=== PATIENT | female | born 1985 ===

== ENCOUNTER 2019-08-05 08:19 | Day surgery (SDC) | payer OTHER ==
[~2019-08-05 08:19] MED LIST: BUSPIRONE HCL30 MG PO; LITHOBID300 M1 PO; PROBIOTIC PO; REMERON30 MG PO; RISPERDAL1 MG PO
[2019-08-05] MEDS ORDERED: PERCOCET 5-3251 EACH PO (16:32)
== END 2019-08-05 18:35 | disposition home or self-care (01) ==
LOC: CIR.AMB 08:19 → ADM 08:30 → CIR.AMB 08:30
DX: Z30.2 Encounter for sterilization (principal)